=== PATIENT | male | born 1955 | race Caucasian/White ===

== ENCOUNTER 2016-12-24 09:13 | Day surgery (SDC) | payer BC ==
--- NOTE | ~2016-12-24 | EGD ---
EGD REPORT [facility] [address] [place] [address] NAME: ROBERT MACHADO : [birth year] STATUS : REG [facility]#: [id number] AGE: 61 ADM/REG DATE : 12/24/16 MR#: [id number] REPORT SERV DATE: 12/24/16 DICTATED BY: PEDRO LUIS TAVERA DATE: 12/24/16 REPORT STATUS : Draft [facility] DATE: 12/24/16 [facility] Center Patient Name: Robert Machado Date of : 1955 Attending MD: PEDRO LUIS TAVERA MD Procedure Date No Time: 12/24/2016 Procedure: Colonoscopy Indications: Screening for colorectal malignant neoplasm; average risk; index exam. Patient Profile: Informed consent was obtained from the patient by me prior to the procedure. Risks, benefits, and alternatives were discussed including the risk of bleeding, perforation, infection, reaction to medicine, missed lesion, and cardiopulmonary complications. Referring MD: BUBBA RUIZ Medicines: Monitored Anesthesia Care Complications: No immediate complications. Procedure: Pre-Anesthesia Assessment: - ASA Grade Assessment: III - A patient with severe systemic disease. After I obtained informed consent, the scope was passed under direct vision. Throughout the procedure, the patient's blood pressure, pulse, and oxygen saturations were monitored continuously. The PCF [id number] was introduced through the anus and advanced to the cecum, identified by appendiceal orifice and ileocecal valve. The colonoscope was slowly withdrawn with careful examination all mucosal surfaces including specific attention around flexures and tip deflection behind folds; retroflexion performed in rectum. The colonoscopy was performed without difficulty. The patient tolerated the procedure well. The quality of the bowel preparation was adequate. The ileocecal valve, appendiceal orifice and rectum were photographed. Findings: A sessile polyp was found at the hepatic flexure. The polyp was 7 mm in size. The polyp was removed with a cold snare. Resection and retrieval were complete. A pedunculated polyp was found at the hepatic flexure. The polyp was 10 mm in size. The polyp was removed with a hot snare. Resection and retrieval were complete. One hemostatic clip was successfully placed. This was done to prevent bleeding. Needs to restart Xarelto for constant Afib. A flat polyp was found at the ileocecal valve. The polyp was 5 mm in EGD REPORT [address] [place]. [address] NAME: ROBERT MACHADO : [birth year] STATUS : REG [facility]#: [id number] AGE: 61 ADM/REG DATE : 12/24/16 MR#: [id number] REPORT SERV DATE: 12/24/16 DICTATED BY: PEDRO LUIS TAVERA DATE: 12/24/16 REPORT STATUS : Draft TRANSCRIBED BY: [employer] DATE: 12/24/16 size. The polyp was removed with a cold biopsy forceps. Resection and retrieval were complete. A sessile polyp was found in the transverse colon. The polyp was 7 mm in size. The polyp was removed with a cold snare. Resection and retrieval were complete. A flat polyp was found in the rectum. The polyp was 5 mm in size. The polyp was removed with a cold biopsy forceps. Resection and retrieval were complete. Impression: - One 7 mm polyp at the hepatic flexure. Resected and retrieved. - One 10 mm polyp at the hepatic flexure. Clip was placed. - One 5 mm polyp at the ileocecal valve. Resected and retrieved. - One 7 mm polyp in the transverse colon. Resected and retrieved. - One 5 mm polyp in the rectum. Resected and retrieved. Recommendation: - Patient has a contact number available for emergencies. The signs and symptoms of potential delayed complications were discussed with the patient. Return to normal activities tomorrow. Written discharge instructions were provided to the patient. - Regular diet. - Continue present medications. - Await pathology results. - Repeat colonoscopy for surveillance based on pathology results. - Restart Xarelto/ASA today. Procedure Code(s): --- Professional --- 15858, Colonoscopy, flexible, proximal to splenic flexure; with removal of tumor(s), polyp(s), or other lesion(s) by snare technique 66251, 59, Colonoscopy, flexible, proximal to splenic flexure; with biopsy, single or multiple Diagnosis Code(s): --- Professional --- K62.1, Rectal polyp D12.0, Benign neoplasm of cecum D12.3, Benign neoplasm of transverse colon Z12.11, Encounter for screening for malignant neoplasm of colon CPT copyright 2013 [employer]. All rights reserved. EGD REPORT [facility] [address] [address] NAME: ROBERT MACHADO : [birth year] STATUS : REG [facility]#: [id number] AGE: 61 ADM/REG DATE : 12/24/16 MR#: [id number] REPORT SERV DATE: 12/24/16 DICTATED BY: PEDRO LUIS TAVERA. DATE: 12/24/16 REPORT STATUS : Draft TRANSCRIBED BY: [employer] DATE: 12/24/16 The codes documented in this report are preliminary and upon control equipment electrician review may be revised to meet current compliance requirements. PEDRO LUIS TAVERA MD 12/24/2016 11:09 AM This report has been signed electronically. Number of Addenda: 0 Note Initiated On: 12/24/2016 10:32 AM Scope Withdrawal Time 0 hours 19 minutes 16 seconds [id number] [id number]
[~2016-12-24 09:13] MED LIST: ALTACE10 MG PO; ASAB PO; BETAPACE80 PO; CIALIS20 MG PO; KLOR-CON M1010 MEQ PO; L20 PO; LAN25 PO; LIPITOR40 PO; XARELTO20 MG PO
== END 2016-12-24 23:59 | disposition home or self-care (01) ==
LOC: DMU 09:13
PROVIDERS: Internal Medicine Gastroenterology
PROC: 0D9 Gastrointestinal System, Drainage (ICD-10-PCS; 2016-12-24)
PROC: 0D9P8ZX Drainage of Rectum, Via Natural or Artificial Opening Endoscopic, Diagnostic (ICD-10-PCS; 2016-12-24)
PROC: 0D9M8ZX Drainage of Descending Colon, Via Natural or Artificial Opening Endoscopic, Diagnostic (ICD-10-PCS; principal; 2016-12-24 10:30)
PROC: 0D9L8ZX Drainage of Transverse Colon, Via Natural or Artificial Opening Endoscopic, Diagnostic (ICD-10-PCS; 2016-12-24 10:30)
DX: Z12.11 Encounter for screening for malignant neoplasm of colon (principal); D12.3 Benign neoplasm of transverse colon; D12.2 Benign neoplasm of ascending colon; K62.1 Rectal polyp; I48.2 Chronic atrial fibrillation; I10 Essential (primary) hypertension; I49.9 Cardiac arrhythmia, unspecified; Z79.82 Long term (current) use of aspirin; Z79.899 Other long term (current) drug therapy
CPT/HCPCS: 88305